=== PATIENT | female | born 1990 | race Caucasian/White ===

== ENCOUNTER → 2021-03-11 | Outpatient (CLI) | payer OTHER ==
[~2021-03-11] MED LIST: ACETAMINOPHEN650 M1 PO; DOXYCYCLINE HY100 MG PO; IBU800 MG PO; LOPERAMIDE2 MG PO; MACROBID 100 M100 MG PO; PHENERGAN 25 MG25 M1 PO; PREDNISONE20 MG PO; PRENATAL TABLE1 EAC2 PO; TAMIFLU 75 MG C75 MG PO; TAMIFLU30 MG PO; VENTOLIN HFA 66.7 GM INH; ZOFRAN 4 MG TAB4 MG PO; ZOFRAN4 MG PO
== END ==
LOC: LAB 09:23
DX: Z32.00 Encounter for pregnancy test, result unknown (principal)
CPT/HCPCS: 36415; 84702

== ENCOUNTER 2021-05-27 14:42 | Emergency (ER) | payer OTHER ==
[~2021-05-27 14:42] MED LIST changes: -MACROBID 100 M100 MG PO
[2021-05-27 15:32] LABS: RED BLOOD COUNT 3.95 M/UL (4.00-5.10); WHITE BLOOD COUNT 11.2 K/UL (4.5-11.0)
[2021-05-27 15:53] LABS: BUN/CREATININE RATIO 8 (0-10)
[2021-05-27] MEDS ORDERED: MACROBID 100 M100 MG PO (18:28)
[2021-05-28 22:09] LABS: CHLAMYDIA TRACHOMATIS, NAA Negative (Negative); NEISSERIA GONORRHOEAE, NAA Negative (Negative)
== END 2021-05-27 19:07 | disposition home or self-care (01) ==
LOC: ER1 14:42
PROVIDERS: Physician Assistant
DX: O23.92 Unspecified genitourinary tract infection in pregnancy, second trimester (principal); Z3A.17 17 weeks gestation of pregnancy
CPT/HCPCS: 76815; 80053; 81001; 83690; 85025; 87086; 87210; 99284

== ENCOUNTER → 2021-09-23 | Outpatient (CLI) | payer BC ==
[~2021-09-23] MED LIST changes: +MACROBID 100 M100 MG PO
== END ==
LOC: EXRD 13:00
DX: O99.891 Other specified diseases and conditions complicating pregnancy (principal); Z3A.00 Weeks of gestation of pregnancy not specified
CPT/HCPCS: 76775

== ENCOUNTER 2021-09-30 11:31 | Emergency (ER) | payer BC ==
[2021-09-30 13:52] LABS: HEMOGLOBIN 11.1 gm/dl (12.3-15.3); RED BLOOD COUNT 3.81 M/UL (4.00-5.10); WHITE BLOOD COUNT 12.8 K/UL (4.5-11.0)
[2021-09-30 14:08] LABS: BUN/CREATININE RATIO 7 (0-10)
== END 2021-09-30 18:35 | disposition home or self-care (01) ==
LOC: ER1 11:31
PROVIDERS: Nurse Practitioner
DX: O98.513 Other viral diseases complicating pregnancy, third trimester (principal); U07.1 COVID-19
CPT/HCPCS: 0240U; 80048; 85025; 87081; 87880; 93005; 99284

== ENCOUNTER 2021-10-20 16:27 | Outpatient (CLI) | payer BC | END 2021-10-20 22:45 | disposition home or self-care (01) | LOC: GENOP 16:27 | DX: O99.891 Other specified diseases and conditions complicating pregnancy (principal); O34.211 Maternal care for low transverse scar from previous cesarean delivery; R10.2 Pelvic and perineal pain; N89.8 Other specified noninflammatory disorders of vagina; N85.8 Other specified noninflammatory disorders of uterus; M54.9 Dorsalgia, unspecified; R10.9 Unspecified abdominal pain; Z3A.37 37 weeks gestation of pregnancy | CPT/HCPCS: 81001; 83518; 96361; 96367; 96374; J0595; J0696; J7120 ==

== ENCOUNTER 2021-11-01 05:03 | Inpatient (IN) | payer BC ==
[2021-11-01 05:28] LABS: HEMOGLOBIN 11.4 gm/dl (12.3-15.3); RED BLOOD COUNT 4.01 M/UL (4.00-5.10); WHITE BLOOD COUNT 12.7 K/UL (4.5-11.0)
[2021-11-01] MEDS ORDERED: UNISOM25 MG PO (06:08)
[2021-11-01] MEDS ORDERED: IRON325 M1 PO (06:08)
[2021-11-01] MEDS ORDERED: HYDROCODON-ACE1 EAC4 PO (08:02)
[2021-11-01] MEDS ORDERED: DOCUSATE SODIU100 MG PO (08:02)
[2021-11-01] MEDS ORDERED: IBUPROFEN600 MG PO (08:02)
[2021-11-02 06:47] LABS: HEMOGLOBIN 10.9 gm/dl (12.3-15.3)
== END 2021-11-02 14:06 | disposition home or self-care (01) | DRG 788 ==
LOC: OB 05:03
PROVIDERS: Obstetrics & Gynecology; ADMIT Obstetrics & Gynecology
PROC: 10D00Z1 Extraction of Products of Conception, Low, Open Approach (ICD-10-PCS; 2021-11-01)
PROC: 3E0234Z Introduction of Serum, Toxoid and Vaccine into Muscle, Percutaneous Approach (ICD-10-PCS; principal; 2021-11-01 07:30)
DX: O34.211 Maternal care for low transverse scar from previous cesarean delivery (principal); Z3A.39 39 weeks gestation of pregnancy; Z37.0 Single live birth; Z23 Encounter for immunization; Z80.8 Family history of malignant neoplasm of other organs or systems; Z83.42 Family history of familial hypercholesterolemia; Z20.822 Contact with and (suspected) exposure to COVID-19
CPT/HCPCS: 36415; 81001; 82800; 85014; 85018; 85025; 90715; C9113; J0690; J1200; J1885; J2210; J2274; J2370; J2405; J2550; J2590; J3010; J7120